=== PATIENT | female | born 2000 | race Two or more races ===

== ENCOUNTER 2019-10-05 16:41 | Emergency (ER) | payer SELFPAY ==
[~2019-10-05] VITALS: Ht 149.9 cm; Wt 68.0 kg
[2019-10-05 17:09] VITALS: BP 139/98
== END 2019-10-05 21:15 | disposition left against medical advice (07) ==
LOC: ER 16:41
DX: R10.9 Unspecified abdominal pain (principal); Z53.21 Procedure and treatment not carried out due to patient leaving prior to being seen by health care provider